=== PATIENT | male | born 1950 | race Hispanic/Latino ===

== ENCOUNTER 2021-08-20 14:37 | Inpatient (IN) | payer MEDICARE, MEDICAID ==
[~2021-08-20 14:37] MED LIST: Heparin 10,000 UNITS/ 10 ML VIAL ONE
[2021-08-20 15:32] LABS: #Eosinphils 0.3 thou/uL (0.0-0.7); #Lymphocytes 0.8 thou/uL (1.20-3.40); #Monocytes 0.4 thou/uL (0.11-0.59); #Neutrophils 5.3 thou/uL (1.40-6.50); %Basophils 0.6 % (0.0-1.0); %Eosinophils 4.3 % (0.0-10.0); %Lymphocytes 11.5 % (21.0-51.0); %Monocytes 5.2 % (0.0-10.0); %Neutrophils 78.3 % (42.0-75.0); Hemoglobin 9.1 g/dL (14.0-18.0); Mean Corpuscular HGB CONC 31.1 g/dL (32.0-36.0); Mean Corpuscular Hemoglobin 31.8 pg (27.0-31.0); Mean Platelet Volume 9.7 fL (7.4-10.4); Platelet Count 151 thou/uL (130-400); RBC Distribution Width 15.1 % (11.5-14.5); Red Blood Cell (RBC) Count 2.87 mill/uL (4.70-6.10); White Blood Cell (WBC) Count 6.7 thou/uL (4.8-10.8)
[2021-08-20 15:57] LABS: ALT (SGPT) 19 U/L (8-55); AST (SGOT) 27 U/L (5-34); Albumin 3.3 g/dL (3.4-4.8); Alkaline Phosphatase 146 U/L (40-110); Anion Gap 18 mmol/L (10-20); BUN (Urea Nitrogen) 77 mg/dL (8.4-25.7); Bilirubin, Total 0.6 mg/dL (0.2-1.2); Calc. Creatinine Clearance 0 mL/min (70-130); Calcium 7.5 mg/dL (7.8-10.44); Carbon Dioxide 14 mmol/L (23-31); Chloride 114 mmol/L (98-107); Globulin 3.5 g/dL (2.4-3.5); Glucose 108 mg/dL (80-115); Potassium 6.1 mmol/L (3.5-5.1); Protein, Total 6.8 g/dL (5.8-8.1); Sodium 140 mmol/L (136-145)
[2021-08-20 16:10] LABS: Bacteria/HPF None Seen HPF (None Seen); Bilirubin Negative (Negative); Blood, Urine 1+ (Negative); Clarity Clear (Clear); Glucose, Urine (Dipstick) 30 mg/dL (Negative); Ketone, Urine Negative (Negative); Leukocyte Negative Leu/uL (Negative); Nitrite Negative (Negative); Protein, Urine (Dipstick) 200 mg/dL (Neg-Trace); Specific Gravity, Urine 1.013 (1.002-1.036); Squamous Epithelial 0-3 HPF (0-3); Urobilinogen Normal mg/dL (Less than 2); WBC/HPF 0-3 HPF (0-3)
[2021-08-20] MEDS ORDERED: Dextrose 50% Abboject 50 ML SYRINGE SLOW IVP PRN (17:04)
[2021-08-20] MEDS ORDERED: Dextrose 5% in Water 1,000 ML IV PRN (17:04)
[2021-08-20] MEDS ORDERED: Acetaminophen 325 MG TAB PO PRN (17:07)
[2021-08-20 19:33] LABS: Troponin I 0.025 ng/mL (< 0.028)
[2021-08-20] MEDS ORDERED: Lantus 1000 UNITS/10 ML VIAL SC SCH ×2 (21:00)
[2021-08-20] MEDS ORDERED: Famotidine 20 MG TAB PO SCH (21:00)
[2021-08-20] MEDS ORDERED: Carvedilol 6.25 MG TAB PO SCH (21:00)
[2021-08-20 21:11] LABS: SARS-CoV-2 NAA Rapid Test Not Detected (NotDetected)
[2021-08-20 21:55] LABS: Troponin I 0.024 ng/mL (< 0.028)
[2021-08-20] MEDS: Carvedilol 6.25 MG TAB PO SCH (22:24)
[2021-08-20] MEDS: Famotidine 20 MG TAB PO SCH (22:25)
[2021-08-20] MEDS: Heparin 5,000 UNITS/ML VIAL SC SCH (23:02)
[2021-08-20 23:26] LABS: HBSAg Index 0.22 S/CO (0-0.99); Hep B Surf Ag Non-Reactive S/CO (NonReactive)
[2021-08-21 04:51] LABS: #Eosinphils 0.3 thou/uL (0.0-0.7); #Lymphocytes 0.7 thou/uL (1.20-3.40); #Monocytes 0.5 thou/uL (0.11-0.59); #Neutrophils 4.4 thou/uL (1.40-6.50); %Basophils 0.2 % (0.0-1.0); %Eosinophils 5.1 % (0.0-10.0); %Lymphocytes 12.1 % (21.0-51.0); %Monocytes 8.2 % (0.0-10.0); %Neutrophils 74.3 % (42.0-75.0); Anisocytosis SLIGHT = 6-15 cells (100X) (0-5/hpf); Burr Cells SLIGHT = 2-5 cells (100X) (0-1/hpf); Hemoglobin 8.7 g/dL (14.0-18.0); Large Platelets SLIGHT; MDiff Complete? YES; Mean Corpuscular HGB CONC 32.1 g/dL (32.0-36.0); Mean Corpuscular Hemoglobin 32.1 pg (27.0-31.0); Mean Corpuscular Volume 99.9 fL (78.0-98.0); Mean Platelet Volume 9.4 fL (7.4-10.4); Platelet Count 113 thou/uL (130-400); Platelet Morphology Comment Appears Decreased; RBC Distribution Width 15.1 % (11.5-14.5); White Blood Cell (WBC) Count 5.9 thou/uL (4.8-10.8)
[2021-08-21 05:01] LABS: Anion Gap 14 mmol/L (10-20); BUN (Urea Nitrogen) 64 mg/dL (8.4-25.7); Calc. Creatinine Clearance 15 mL/min (70-130); Calcium 7.7 mg/dL (7.8-10.44); Carbon Dioxide 19 mmol/L (23-31); Cardiac Risk 2.2 (Less than 4.5); Chloride 112 mmol/L (98-107); Cholesterol 85 mg/dl (< 200 Desired); Glucose 77 mg/dL (80-115); HDL Cholesterol 38 mg/dL (>60 Neg Risk); Iron 30 ug/dL (65-175); Iron Binding Capacity, Total 241 mcg/dL (261-462); LDL Cholesterol, Calculated 34 mg/dL; Potassium 4.8 mmol/L (3.5-5.1); Sodium 140 mmol/L (136-145); Triglycerides 63 mg/dL (Less than 150)
[2021-08-21 05:11] LABS: Ferritin 89.63 ng/mL (22-322); Thyroid Stimulating Hormone 0.6317 uIU/mL (0.35-4.94)
[2021-08-21 06:43] LABS: Hemoglobin A1c 5.3 % (4.0-6.0)
[2021-08-21] MEDS ORDERED: hydrALAZINE 20 MG/ML VIAL SLOW IVP PRN (08:41)
[2021-08-21] MEDS ORDERED: Tuberculin PPD 0.1 ML VIAL I-DERMAL SCH (08:45)
[2021-08-21] MEDS ORDERED: Non-Formulary Item 1 EACH (Atorvastatin Calcium [Atorvastatin Calcium] 80 MG Tablet) PO SCH (09:00)
[2021-08-21] MEDS ORDERED: Clopidogrel Bisulfate 75 MG TAB PO SCH (09:00)
[2021-08-21] MEDS ORDERED: Non-Formulary Item 1 EACH (Aspirin [Vazalore] 81 MG Capsule) PO SCH (09:00)
[2021-08-21 09:29] LABS: HBSAB Concentration Less than 8.00 mIU/mL; HBSAg Index 0.23 S/CO (0-0.99); Hep B Core Total Ab Non-Reactive (NonReactive); Hep B Core Total Index 0.13 S/CO (0-0.79); Hep B Surf AB Non-Reactive (NonReactive); Hep B Surf Ag Non-Reactive S/CO (NonReactive); Hep C IgG Ab Non-Reactive (NonReactive); Hep C Index 0.45 S/CO (0-0.79)
[2021-08-21] MEDS ORDERED: Heparin 10,000 UNITS/ 10 ML VIAL ONE (10:11)
[2021-08-21] MEDS: Atorvastatin Calcium 40 MG TAB PO SCH (13:19)
[2021-08-21] MEDS: Ferrous Sulfate 325 MG TAB PO SCH (13:20)
[2021-08-21] MEDS: hydrALAZINE 25 MG TAB PO SCH ×2 (13:20→21:08)
[2021-08-21] MEDS: Clopidogrel Bisulfate 75 MG TAB PO SCH (13:20)
[2021-08-21] MEDS: Heparin 5,000 UNITS/ML VIAL SC SCH ×4 (13:20→21:08)
[2021-08-21] MEDS: Carvedilol 6.25 MG TAB PO SCH ×2 (13:20→21:08)
[2021-08-21] MEDS: Aspirin 81 mg Enteric Coated Tablet PO SCH (13:20)
[2021-08-21] MEDS ORDERED: ceFAZolin 2 GM/Dextrose 50 ML 2 GM in Premix Bag 1 BAG IVPB SCH (13:30)
[2021-08-21] MEDS: HumaLOG 300 UNITS/3 ML VIAL SC PRN (21:08)
[2021-08-21] MEDS: Famotidine 20 MG TAB PO SCH (21:09)
[2021-08-22 05:02] LABS: #Eosinphils 0.3 thou/uL (0.0-0.7); #Lymphocytes 0.8 thou/uL (1.20-3.40); #Monocytes 0.5 thou/uL (0.11-0.59); #Neutrophils 4.6 thou/uL (1.40-6.50); %Basophils 0.3 % (0.0-1.0); %Eosinophils 4.7 % (0.0-10.0); %Lymphocytes 12.5 % (21.0-51.0); %Monocytes 8.6 % (0.0-10.0); %Neutrophils 73.9 % (42.0-75.0); Mean Corpuscular HGB CONC 33.4 g/dL (32.0-36.0); Mean Corpuscular Hemoglobin 33.6 pg (27.0-31.0); Mean Platelet Volume 9.2 fL (7.4-10.4); Platelet Count 88 thou/uL (130-400); RBC Distribution Width 15.2 % (11.5-14.5); Red Blood Cell (RBC) Count 2.68 mill/uL (4.70-6.10); White Blood Cell (WBC) Count 6.2 thou/uL (4.8-10.8)
[2021-08-22 05:20] LABS: Anion Gap 11 mmol/L (10-20); BUN (Urea Nitrogen) 43 mg/dL (8.4-25.7); Calc. Creatinine Clearance 18 mL/min (70-130); Calcium 7.6 mg/dL (7.8-10.44); Carbon Dioxide 26 mmol/L (23-31); Chloride 106 mmol/L (98-107); Glucose 109 mg/dL (80-115); Potassium 4.2 mmol/L (3.5-5.1); Sodium 139 mmol/L (136-145)
[2021-08-22] MEDS ORDERED: Epoetin (ESRD) 20,000 UNITS/ML SC SCH (08:45)
[2021-08-22] MEDS ORDERED: Heparin 10,000 UNITS/ 10 ML VIAL ONE (08:53)
[2021-08-22] MEDS: Heparin 5,000 UNITS/ML VIAL SC SCH ×3 (09:58→20:23)
[2021-08-22] MEDS: Ferrous Sulfate 325 MG TAB PO SCH (16:35)
[2021-08-22] MEDS: Carvedilol 6.25 MG TAB PO SCH ×2 (16:35→20:20)
[2021-08-22] MEDS: hydrALAZINE 25 MG TAB PO SCH ×2 (16:35→20:18)
[2021-08-22] MEDS: Clopidogrel Bisulfate 75 MG TAB PO SCH (16:35)
[2021-08-22] MEDS: Aspirin 81 mg Enteric Coated Tablet PO SCH (16:35)
[2021-08-22] MEDS: Isosorbide Dinitrate 5 MG TAB PO SCH ×2 (16:35→20:18)
[2021-08-22] MEDS: Atorvastatin Calcium 40 MG TAB PO SCH ×2 (16:36→20:19)
[2021-08-22] MEDS: EPOETIN ALFA-EPBX (ESRD) 10,000 UNIT/ML VIAL SC SCH (17:45)
[2021-08-22] MEDS: Famotidine 20 MG TAB PO SCH (20:19)
[2021-08-23 04:51] LABS: #Eosinphils 0.2 thou/uL (0.0-0.7); #Lymphocytes 0.6 thou/uL (1.20-3.40); #Monocytes 0.5 thou/uL (0.11-0.59); #Neutrophils 3.9 thou/uL (1.40-6.50); %Basophils 0.7 % (0.0-1.0); %Eosinophils 4.6 % (0.0-10.0); %Lymphocytes 10.8 % (21.0-51.0); %Monocytes 9.3 % (0.0-10.0); %Neutrophils 74.6 % (42.0-75.0); Hemoglobin 8.3 g/dL (14.0-18.0); Mean Corpuscular Hemoglobin 34.3 pg (27.0-31.0); Mean Platelet Volume 9.4 fL (7.4-10.4); Platelet Count 67 thou/uL (130-400); Red Blood Cell (RBC) Count 2.43 mill/uL (4.70-6.10); White Blood Cell (WBC) Count 5.3 thou/uL (4.8-10.8)
[2021-08-23 05:09] LABS: Phosphorus 3.2 mg/dL (2.3-4.7)
[2021-08-23 05:10] LABS: Anion Gap 12 mmol/L (10-20); BUN (Urea Nitrogen) 22 mg/dL (8.4-25.7); Calc. Creatinine Clearance 25 mL/min (70-130); Calcium 7.5 mg/dL (7.8-10.44); Carbon Dioxide 27 mmol/L (23-31); Chloride 103 mmol/L (98-107); Glucose 130 mg/dL (80-115); Potassium 3.6 mmol/L (3.5-5.1); Sodium 138 mmol/L (136-145)
[2021-08-23] MEDS ORDERED: Heparin 10,000 UNITS/ 10 ML VIAL ONE (09:13)
[2021-08-23] MEDS: Carvedilol 6.25 MG TAB PO SCH ×2 (10:29→21:52)
[2021-08-23] MEDS: hydrALAZINE 25 MG TAB PO SCH ×3 (10:30→21:53)
[2021-08-23] MEDS: Isosorbide Dinitrate 5 MG TAB PO SCH ×3 (10:31→21:53)
[2021-08-23] MEDS: Losartan 25 MG TAB PO SCH ×2 (10:31→15:36)
[2021-08-23 11:06] LABS: INR-International Normal Ratio 1.1; Prothrombin Time 14.6 sec (12.0-14.7)
[2021-08-23] MEDS ORDERED: Argatroban (Non -ESRD) 250 MG in Sodium Chloride 0.9% 250 ML 250 ML IVPB SCH (11:30)
[2021-08-23] MEDS: Fluticasone Propionate Nasal Spray 16 gm Bottle NASAL SCH (15:33)
[2021-08-23] MEDS: Polyethylene Glycol 3350 17 GM Packet PO SCH (15:33)
[2021-08-23] MEDS: Ferrous Sulfate 325 MG TAB PO SCH (15:34)
[2021-08-23] MEDS: Aspirin 81 mg Enteric Coated Tablet PO SCH (15:35)
[2021-08-23] MEDS: Calcitriol 0.25 MCG CAP PO SCH (15:35)
[2021-08-23] MEDS: Clopidogrel Bisulfate 75 MG TAB PO SCH (15:36)
[2021-08-23] MEDS: Famotidine 20 MG TAB PO SCH (21:52)
[2021-08-23] MEDS: Atorvastatin Calcium 40 MG TAB PO SCH (21:52)
[2021-08-24 06:13] LABS: #Eosinphils 0.3 thou/uL (0.0-0.7); #Lymphocytes 0.8 thou/uL (1.20-3.40); #Monocytes 0.5 thou/uL (0.11-0.59); #Neutrophils 4.4 thou/uL (1.40-6.50); %Basophils 0.4 % (0.0-1.0); %Eosinophils 5.1 % (0.0-10.0); %Lymphocytes 13.4 % (21.0-51.0); %Monocytes 8.4 % (0.0-10.0); %Neutrophils 72.7 % (42.0-75.0); Hemoglobin 8.1 g/dL (14.0-18.0); Mean Corpuscular HGB CONC 32.7 g/dL (32.0-36.0); Mean Corpuscular Hemoglobin 32.8 pg (27.0-31.0); Mean Platelet Volume 9.9 fL (7.4-10.4); Platelet Count 63 thou/uL (130-400); Red Blood Cell (RBC) Count 2.46 mill/uL (4.70-6.10)
[2021-08-24 06:23] LABS: Anion Gap 10 mmol/L (10-20); BUN (Urea Nitrogen) 12 mg/dL (8.4-25.7); Calc. Creatinine Clearance 28 mL/min (70-130); Calcium 7.7 mg/dL (7.8-10.44); Carbon Dioxide 31 mmol/L (23-31); Chloride 101 mmol/L (98-107); Glucose 131 mg/dL (80-115); Potassium 3.6 mmol/L (3.5-5.1); Sodium 138 mmol/L (136-145)
[2021-08-24] MEDS ORDERED: Losartan 25 MG TAB PO SCH (09:45)
[2021-08-24] MEDS ORDERED: Heparin 10,000 UNITS/ 10 ML VIAL ONE (11:32)
[2021-08-24] MEDS ORDERED: Lidocaine 1% w/Epinephrine 1:100K 30 ML VIAL ONE (11:32)
[2021-08-24] MEDS ORDERED: Heparin 5,000 UNITS/ML VIAL ONE (11:32)
[2021-08-24] MEDS ORDERED: Bupivacaine PF 0.5% 30 ML VIAL ONE (11:32)
[2021-08-24] MEDS ORDERED: Fentanyl 100 MCG/2 ML VIAL ONE (11:36)
[2021-08-24] MEDS ORDERED: Phenylephrine 10 MG/ML VIAL ONE (11:36)
[2021-08-24] MEDS ORDERED: PACU-Morphine 4MG/ML VIAL SLOW IVP PRN (11:46)
[2021-08-24] MEDS ORDERED: Promethazine HCl 25 MG/ML VIAL IM PRN (11:46)
[2021-08-24] MEDS ORDERED: Promethazine HCl 25 MG/ML VIAL IVPB PRN (11:46)
[2021-08-24] MEDS ORDERED: ceFAZolin 2 GM/Dextrose 50 ML IVPB ONE (11:47)
[2021-08-24] MEDS ORDERED: PROPOFOL 200 MG/20 ML VIAL ONE (12:13)
[2021-08-24] MEDS ORDERED: Ondansetron PF 4 MG/2 ML Vial ONE (12:13)
[2021-08-24] MEDS ORDERED: PHENYLEPHRINE-NS 100 MCG/ML 10 ML SYRINGE ONE (12:13)
[2021-08-24] MEDS ORDERED: Dexamethasone 20 MG/5 ML VIAL ONE (12:13)
[2021-08-24] MEDS ORDERED: Lidocaine 1% PF 5 ML VIAL ONE (12:13)
[2021-08-24] MEDS ORDERED: ePHEDrine 50 MG/ML VIAL ONE (12:13)
[2021-08-24] MEDS ORDERED: Glycopyrrolate 0.2 MG/ML 5 ML SYRINGE ONE (12:13)
[2021-08-24] MEDS ORDERED: Rocuronium Bromide 10 MG/ML (10ML VIAL) ONE (12:13)
[2021-08-24] MEDS ORDERED: Argatroban (Non -ESRD) 250 MG in Sodium Chloride 0.9% 250 ML 250 ML IVPB SCH (12:30)
[2021-08-24] MEDS ORDERED: Argatroban (ESRD) 250 MG/2.5 ML IVPB SCH (12:30)
[2021-08-24] MEDS ORDERED: SUGAMMADEX SODIUM 200 MG/2 ML VIAL ONE (14:15)
[2021-08-24] MEDS: Aspirin 81 mg Enteric Coated Tablet PO SCH (14:33)
[2021-08-24] MEDS: Ferrous Sulfate 325 MG TAB PO SCH (14:33)
[2021-08-24] MEDS: Carvedilol 6.25 MG TAB PO SCH ×2 (14:34→20:47)
[2021-08-24] MEDS: Clopidogrel Bisulfate 75 MG TAB PO SCH (14:34)
[2021-08-24] MEDS: Calcitriol 0.25 MCG CAP PO SCH (14:34)
[2021-08-24] MEDS: Fluticasone Propionate Nasal Spray 16 gm Bottle NASAL SCH (14:35)
[2021-08-24] MEDS: Isosorbide Dinitrate 5 MG TAB PO SCH ×3 (14:35→20:47)
[2021-08-24] MEDS: Polyethylene Glycol 3350 17 GM Packet PO SCH (14:35)
[2021-08-24] MEDS: hydrALAZINE 25 MG TAB PO SCH ×3 (14:37→20:46)
[2021-08-24] MEDS: Losartan 25 MG TAB PO SCH (14:38)
[2021-08-24] MEDS ORDERED: Acetaminophen 500 MG TAB PO PRN (15:09)
[2021-08-24] MEDS ORDERED: Acetaminophen 500 MG TAB PO SCH (15:15)
[2021-08-24] MEDS: Atorvastatin Calcium 40 MG TAB PO SCH (20:46)
[2021-08-24] MEDS: Famotidine 20 MG TAB PO SCH (20:47)
[2021-08-25 04:58] LABS: Anion Gap 14 mmol/L (10-20); BUN (Urea Nitrogen) 18 mg/dL (8.4-25.7); Calc. Creatinine Clearance 21 mL/min (70-130); Calcium 7.6 mg/dL (7.8-10.44); Carbon Dioxide 27 mmol/L (23-31); Chloride 102 mmol/L (98-107); Glucose 157 mg/dL (80-115); Potassium 4.6 mmol/L (3.5-5.1); Sodium 138 mmol/L (136-145)
[2021-08-25 05:13] LABS: #Lymphocytes 0.5 thou/uL (1.20-3.40); #Monocytes 0.7 thou/uL (0.11-0.59); #Neutrophils 8.7 thou/uL (1.40-6.50); %Lymphocytes 5.2 % (21.0-51.0); %Monocytes 6.6 % (0.0-10.0); %Neutrophils 88.2 % (42.0-75.0); Hemoglobin 8.2 g/dL (14.0-18.0); Mean Corpuscular HGB CONC 32.5 g/dL (32.0-36.0); Mean Corpuscular Hemoglobin 33.2 pg (27.0-31.0); Mean Platelet Volume 9.2 fL (7.4-10.4); Platelet Count 108 thou/uL (130-400); RBC Distribution Width 14.8 % (11.5-14.5); Red Blood Cell (RBC) Count 2.47 mill/uL (4.70-6.10); White Blood Cell (WBC) Count 9.9 thou/uL (4.8-10.8)
[2021-08-25] MEDS ORDERED: Heparin 10,000 UNITS/ 10 ML VIAL ONE (09:31)
[2021-08-25] MEDS: Ferrous Sulfate 325 MG TAB PO SCH (14:14)
[2021-08-25] MEDS: Carvedilol 6.25 MG TAB PO SCH ×2 (14:15→21:50)
[2021-08-25] MEDS: Clopidogrel Bisulfate 75 MG TAB PO SCH (14:15)
[2021-08-25] MEDS: Calcitriol 0.25 MCG CAP PO SCH (14:15)
[2021-08-25] MEDS: Fluticasone Propionate Nasal Spray 16 gm Bottle NASAL SCH (14:16)
[2021-08-25] MEDS: hydrALAZINE 25 MG TAB PO SCH ×3 (14:17→21:51)
[2021-08-25] MEDS: Isosorbide Dinitrate 5 MG TAB PO SCH ×3 (14:18→21:07)
[2021-08-25] MEDS: Losartan 25 MG TAB PO SCH (14:19)
[2021-08-25] MEDS: Aspirin 81 mg Enteric Coated Tablet PO SCH (14:41)
[2021-08-25] MEDS: Polyethylene Glycol 3350 17 GM Packet PO SCH ×2 (14:44→21:19)
[2021-08-25] MEDS: Famotidine 20 MG TAB PO SCH (21:07)
[2021-08-25] MEDS: Atorvastatin Calcium 40 MG TAB PO SCH (21:07)
[2021-08-26] MEDS: Fluticasone Propionate Nasal Spray 16 gm Bottle NASAL SCH (08:32)
[2021-08-26] MEDS: Polyethylene Glycol 3350 17 GM Packet PO SCH ×2 (08:33→21:35)
[2021-08-26] MEDS: hydrALAZINE 25 MG TAB PO SCH ×3 (08:34→21:24)
[2021-08-26] MEDS: Clopidogrel Bisulfate 75 MG TAB PO SCH (08:35)
[2021-08-26] MEDS: Losartan 25 MG TAB PO SCH (08:36)
[2021-08-26] MEDS: Ferrous Sulfate 325 MG TAB PO SCH (08:36)
[2021-08-26] MEDS: Calcitriol 0.25 MCG CAP PO SCH (08:36)
[2021-08-26] MEDS: Aspirin 81 mg Enteric Coated Tablet PO SCH (08:36)
[2021-08-26] MEDS: Isosorbide Dinitrate 5 MG TAB PO SCH ×3 (08:37→21:24)
[2021-08-26] MEDS: Carvedilol 6.25 MG TAB PO SCH ×2 (08:37→21:25)
[2021-08-26 12:53] LABS: #Eosinphils 0.3 thou/uL (0.0-0.7); #Lymphocytes 0.7 thou/uL (1.20-3.40); #Monocytes 0.6 thou/uL (0.11-0.59); #Neutrophils 6.4 thou/uL (1.40-6.50); %Basophils 0.3 % (0.0-1.0); %Eosinophils 4.2 % (0.0-10.0); %Lymphocytes 9.2 % (21.0-51.0); %Neutrophils 79.4 % (42.0-75.0); Hemoglobin 7.9 g/dL (14.0-18.0); Mean Corpuscular HGB CONC 33.1 g/dL (32.0-36.0); Mean Corpuscular Hemoglobin 33.9 pg (27.0-31.0); Mean Platelet Volume 9.2 fL (7.4-10.4); Platelet Count 92 thou/uL (130-400); Red Blood Cell (RBC) Count 2.32 mill/uL (4.70-6.10); White Blood Cell (WBC) Count 8.1 thou/uL (4.8-10.8)
[2021-08-26 13:02] LABS: Anion Gap 9 mmol/L (10-20); BUN (Urea Nitrogen) 20 mg/dL (8.4-25.7); Calc. Creatinine Clearance 22 mL/min (70-130); Calcium 7.6 mg/dL (7.8-10.44); Carbon Dioxide 32 mmol/L (23-31); Chloride 98 mmol/L (98-107); Glucose 173 mg/dL (80-115); Potassium 3.9 mmol/L (3.5-5.1); Sodium 135 mmol/L (136-145)
[2021-08-26] MEDS: HumaLOG 300 UNITS/3 ML VIAL SC PRN (17:49)
[2021-08-26] MEDS: Famotidine 20 MG TAB PO SCH (21:25)
[2021-08-26] MEDS: Atorvastatin Calcium 40 MG TAB PO SCH (21:25)
[2021-08-27] MEDS: Fluticasone Propionate Nasal Spray 16 gm Bottle NASAL SCH (09:11)
[2021-08-27] MEDS: Calcitriol 0.25 MCG CAP PO SCH (09:11)
[2021-08-27] MEDS: Polyethylene Glycol 3350 17 GM Packet PO SCH ×2 (09:11→20:42)
[2021-08-27] MEDS: Aspirin 81 mg Enteric Coated Tablet PO SCH (09:11)
[2021-08-27] MEDS: hydrALAZINE 25 MG TAB PO SCH ×3 (09:11→20:40)
[2021-08-27] MEDS: Carvedilol 6.25 MG TAB PO SCH ×2 (09:13→20:40)
[2021-08-27] MEDS: Losartan 25 MG TAB PO SCH (09:13)
[2021-08-27] MEDS: Ferrous Sulfate 325 MG TAB PO SCH (09:13)
[2021-08-27] MEDS: Clopidogrel Bisulfate 75 MG TAB PO SCH (09:14)
[2021-08-27] MEDS: Isosorbide Dinitrate 5 MG TAB PO SCH ×3 (09:14→20:41)
[2021-08-27 10:02] LABS: #Eosinphils 0.4 thou/uL (0.0-0.7); #Lymphocytes 0.8 thou/uL (1.20-3.40); #Monocytes 0.5 thou/uL (0.11-0.59); #Neutrophils 6.5 thou/uL (1.40-6.50); %Basophils 0.4 % (0.0-1.0); %Eosinophils 4.6 % (0.0-10.0); %Lymphocytes 9.6 % (21.0-51.0); %Monocytes 6.4 % (0.0-10.0); Hemoglobin 8.4 g/dL (14.0-18.0); Mean Corpuscular HGB CONC 30.8 g/dL (32.0-36.0); Mean Platelet Volume 9.3 fL (7.4-10.4); Platelet Count 110 thou/uL (130-400); RBC Distribution Width 14.8 % (11.5-14.5); Red Blood Cell (RBC) Count 2.69 mill/uL (4.70-6.10); White Blood Cell (WBC) Count 8.2 thou/uL (4.8-10.8)
[2021-08-27 11:03] LABS: Anion Gap 13 mmol/L (10-20); BUN (Urea Nitrogen) 30 mg/dL (8.4-25.7); Calc. Creatinine Clearance 16 mL/min (70-130); Calcium 8.2 mg/dL (7.8-10.44); Carbon Dioxide 29 mmol/L (23-31); Chloride 98 mmol/L (98-107); Glucose 179 mg/dL (80-115); Potassium 3.7 mmol/L (3.5-5.1); Sodium 136 mmol/L (136-145)
[2021-08-27] MEDS: HumaLOG 300 UNITS/3 ML VIAL SC PRN ×2 (12:22→19:41)
[2021-08-27 13:36] LABS: SARS-CoV-2 PCR by NAA Not Detected (NotDetected)
[2021-08-27] MEDS: Atorvastatin Calcium 40 MG TAB PO SCH (20:39)
[2021-08-27] MEDS: Famotidine 20 MG TAB PO SCH (20:40)
[2021-08-28 06:00] LABS: Anion Gap 15 mmol/L (10-20); BUN (Urea Nitrogen) 33 mg/dL (8.4-25.7); Calc. Creatinine Clearance 13 mL/min (70-130); Calcium 7.9 mg/dL (7.8-10.44); Carbon Dioxide 26 mmol/L (23-31); Chloride 98 mmol/L (98-107); Glucose 99 mg/dL (80-115); Potassium 3.7 mmol/L (3.5-5.1); Sodium 135 mmol/L (136-145)
[2021-08-28 06:01] LABS: #Eosinphils 0.3 thou/uL (0.0-0.7); #Lymphocytes 0.8 thou/uL (1.20-3.40); #Monocytes 0.6 thou/uL (0.11-0.59); #Neutrophils 5.3 thou/uL (1.40-6.50); %Basophils 0.3 % (0.0-1.0); %Eosinophils 4.4 % (0.0-10.0); %Lymphocytes 11.2 % (21.0-51.0); %Monocytes 7.8 % (0.0-10.0); %Neutrophils 76.2 % (42.0-75.0); Hemoglobin 7.5 g/dL (14.0-18.0); Mean Corpuscular HGB CONC 32.5 g/dL (32.0-36.0); Mean Corpuscular Hemoglobin 32.4 pg (27.0-31.0); Mean Corpuscular Volume 99.5 fL (78.0-98.0); Mean Platelet Volume 8.9 fL (7.4-10.4); Platelet Count 111 thou/uL (130-400); RBC Distribution Width 14.8 % (11.5-14.5); Red Blood Cell (RBC) Count 2.31 mill/uL (4.70-6.10)
[2021-08-28] MEDS: Fluticasone Propionate Nasal Spray 16 gm Bottle NASAL SCH (09:23)
[2021-08-28] MEDS ORDERED: Heparin 10,000 UNITS/ 10 ML VIAL ONE (10:39)
[2021-08-28] MEDS: hydrALAZINE 25 MG TAB PO SCH ×3 (10:51→21:48)
[2021-08-28] MEDS: Isosorbide Dinitrate 5 MG TAB PO SCH ×3 (10:51→21:49)
[2021-08-28] MEDS: Ferrous Sulfate 325 MG TAB PO SCH (15:11)
[2021-08-28] MEDS: Aspirin 81 mg Enteric Coated Tablet PO SCH (15:11)
[2021-08-28] MEDS: Carvedilol 6.25 MG TAB PO SCH ×2 (15:12→21:48)
[2021-08-28] MEDS: Calcitriol 0.25 MCG CAP PO SCH (15:12)
[2021-08-28] MEDS: Clopidogrel Bisulfate 75 MG TAB PO SCH (15:12)
[2021-08-28] MEDS: Losartan 25 MG TAB PO SCH (15:12)
[2021-08-28] MEDS: traMADol HCl 50 MG TAB PO PRN ×2 (15:13→21:50)
[2021-08-28] MEDS: Polyethylene Glycol 3350 17 GM Packet PO SCH ×3 (15:13→21:51)
[2021-08-28 17:15] LABS: Heparin-Induced Ab (HITA) 0.092 OD (0.000-0.400)
[2021-08-28] MEDS: HumaLOG 300 UNITS/3 ML VIAL SC PRN ×2 (18:10→21:59)
[2021-08-28] MEDS: Famotidine 20 MG TAB PO SCH (21:48)
[2021-08-28] MEDS: Atorvastatin Calcium 40 MG TAB PO SCH (21:48)
[2021-08-29 04:56] LABS: #Eosinphils 0.2 thou/uL (0.0-0.7); #Monocytes 0.6 thou/uL (0.11-0.59); #Neutrophils 4.5 thou/uL (1.40-6.50); %Basophils 0.6 % (0.0-1.0); %Eosinophils 3.4 % (0.0-10.0); %Lymphocytes 15.1 % (21.0-51.0); %Monocytes 9.2 % (0.0-10.0); %Neutrophils 71.7 % (42.0-75.0); Hemoglobin 7.1 g/dL (14.0-18.0); Mean Corpuscular HGB CONC 32.1 g/dL (32.0-36.0); Mean Corpuscular Hemoglobin 32.2 pg (27.0-31.0); Mean Platelet Volume 8.6 fL (7.4-10.4); Platelet Count 100 thou/uL (130-400); RBC Distribution Width 14.7 % (11.5-14.5); Red Blood Cell (RBC) Count 2.22 mill/uL (4.70-6.10); White Blood Cell (WBC) Count 6.3 thou/uL (4.8-10.8)
[2021-08-29 05:03] LABS: Anion Gap 10 mmol/L (10-20); BUN (Urea Nitrogen) 20 mg/dL (8.4-25.7); Calc. Creatinine Clearance 20 mL/min (70-130); Calcium 7.7 mg/dL (7.8-10.44); Carbon Dioxide 31 mmol/L (23-31); Chloride 100 mmol/L (98-107); Glucose 98 mg/dL (80-115); Sodium 137 mmol/L (136-145)
[2021-08-29] MEDS: Isosorbide Dinitrate 5 MG TAB PO SCH ×3 (09:24→20:54)
[2021-08-29] MEDS: Aspirin 81 mg Enteric Coated Tablet PO SCH (09:24)
[2021-08-29] MEDS: Ferrous Sulfate 325 MG TAB PO SCH (09:24)
[2021-08-29] MEDS: Carvedilol 6.25 MG TAB PO SCH ×2 (09:25→20:54)
[2021-08-29] MEDS: Clopidogrel Bisulfate 75 MG TAB PO SCH (09:25)
[2021-08-29] MEDS: Calcitriol 0.25 MCG CAP PO SCH (09:25)
[2021-08-29] MEDS: Fluticasone Propionate Nasal Spray 16 gm Bottle NASAL SCH (09:27)
[2021-08-29] MEDS: Losartan 25 MG TAB PO SCH (09:29)
[2021-08-29] MEDS: hydrALAZINE 25 MG TAB PO SCH ×3 (09:29→20:53)
[2021-08-29] MEDS: Polyethylene Glycol 3350 17 GM Packet PO SCH ×2 (09:29→21:01)
[2021-08-29] MEDS ORDERED: traMADol HCl 50 MG TAB PO PRN (09:57)
[2021-08-29] MEDS: EPOETIN ALFA-EPBX (ESRD) 10,000 UNIT/ML VIAL SC SCH (11:07)
[2021-08-29] MEDS: HumaLOG 300 UNITS/3 ML VIAL SC PRN (17:17)
[2021-08-29] MEDS: Atorvastatin Calcium 40 MG TAB PO SCH (20:54)
[2021-08-29] MEDS: Famotidine 20 MG TAB PO SCH (20:54)
[2021-08-29 21:28] LABS: Hemoglobin 8.7 g/dL (14.0-18.0); Platelet Count 117 thou/uL (130-400)
[2021-08-30 05:50] LABS: #Eosinphils 0.3 thou/uL (0.0-0.7); #Monocytes 0.7 thou/uL (0.11-0.59); #Neutrophils 5.2 thou/uL (1.40-6.50); %Basophils 0.3 % (0.0-1.0); %Eosinophils 4.1 % (0.0-10.0); %Lymphocytes 13.9 % (21.0-51.0); %Monocytes 9.6 % (0.0-10.0); %Neutrophils 72.1 % (42.0-75.0); Hemoglobin 8.5 g/dL (14.0-18.0); Mean Corpuscular HGB CONC 32.2 g/dL (32.0-36.0); Mean Corpuscular Volume 99.4 fL (78.0-98.0); Platelet Count 120 thou/uL (130-400); RBC Distribution Width 15.1 % (11.5-14.5); Red Blood Cell (RBC) Count 2.67 mill/uL (4.70-6.10); White Blood Cell (WBC) Count 7.3 thou/uL (4.8-10.8)
[2021-08-30 06:05] LABS: Anion Gap 13 mmol/L (10-20); BUN (Urea Nitrogen) 26 mg/dL (8.4-25.7); Calc. Creatinine Clearance 15 mL/min (70-130); Calcium 8.3 mg/dL (7.8-10.44); Carbon Dioxide 29 mmol/L (23-31); Chloride 99 mmol/L (98-107); Glucose 102 mg/dL (80-115); Potassium 3.9 mmol/L (3.5-5.1); Sodium 137 mmol/L (136-145)
[2021-08-30] MEDS: Isosorbide Dinitrate 5 MG TAB PO SCH ×4 (09:01→20:44)
[2021-08-30] MEDS: hydrALAZINE 25 MG TAB PO SCH ×4 (09:01→20:44)
[2021-08-30] MEDS: Polyethylene Glycol 3350 17 GM Packet PO SCH ×2 (09:02→20:44)
[2021-08-30] MEDS: Losartan 25 MG TAB PO SCH ×2 (09:02→09:20)
[2021-08-30] MEDS: Metoclopramide HCl 10 MG TAB PO SCH ×5 (09:03→20:44)
[2021-08-30] MEDS: Fluticasone Propionate Nasal Spray 16 gm Bottle NASAL SCH (09:18)
[2021-08-30] MEDS: Clopidogrel Bisulfate 75 MG TAB PO SCH (09:20)
[2021-08-30] MEDS: Aspirin 81 mg Enteric Coated Tablet PO SCH (09:21)
[2021-08-30] MEDS: Ferrous Sulfate 325 MG TAB PO SCH (09:21)
[2021-08-30] MEDS: Calcitriol 0.25 MCG CAP PO SCH (09:21)
[2021-08-30] MEDS: Carvedilol 6.25 MG TAB PO SCH ×2 (09:21→20:43)
[2021-08-30] MEDS ORDERED: diphenhydrAMINE 25 MG CAP PO SCH (09:30)
[2021-08-30] MEDS ORDERED: Heparin 10,000 UNITS/ 10 ML VIAL ONE (10:44)
[2021-08-30 12:51] VITALS: BMI 31.6
[2021-08-30] MEDS: Atorvastatin Calcium 40 MG TAB PO SCH (20:43)
[2021-08-30] MEDS: Famotidine 20 MG TAB PO SCH (20:44)
[2021-08-31 04:33] LABS: #Basophils 0.1 thou/uL (0.0-0.2); #Eosinphils 0.3 thou/uL (0.0-0.7); #Lymphocytes 0.9 thou/uL (1.20-3.40); #Monocytes 0.7 thou/uL (0.11-0.59); #Neutrophils 5.1 thou/uL (1.40-6.50); %Basophils 0.7 % (0.0-1.0); %Eosinophils 4.6 % (0.0-10.0); %Lymphocytes 12.6 % (21.0-51.0); %Monocytes 9.6 % (0.0-10.0); %Neutrophils 72.4 % (42.0-75.0); Hemoglobin 8.7 g/dL (14.0-18.0); Mean Corpuscular HGB CONC 32.2 g/dL (32.0-36.0); Mean Corpuscular Volume 99.4 fL (78.0-98.0); Mean Platelet Volume 9.1 fL (7.4-10.4); Platelet Count 102 thou/uL (130-400); RBC Distribution Width 14.9 % (11.5-14.5); Red Blood Cell (RBC) Count 2.73 mill/uL (4.70-6.10)
[2021-08-31 04:45] LABS: Anion Gap 13 mmol/L (10-20); BUN (Urea Nitrogen) 17 mg/dL (8.4-25.7); Calc. Creatinine Clearance 21 mL/min (70-130); Calcium 8.2 mg/dL (7.8-10.44); Carbon Dioxide 29 mmol/L (23-31); Chloride 99 mmol/L (98-107); Glucose 112 mg/dL (80-115); Potassium 3.7 mmol/L (3.5-5.1); Sodium 137 mmol/L (136-145)
[2021-08-31] MEDS: Metoclopramide HCl 10 MG TAB PO SCH ×4 (08:32→21:48)
[2021-08-31] MEDS: Ferrous Sulfate 325 MG TAB PO SCH (08:33)
[2021-08-31] MEDS: Carvedilol 6.25 MG TAB PO SCH ×2 (08:33→21:51)
[2021-08-31] MEDS: Aspirin 81 mg Enteric Coated Tablet PO SCH (08:33)
[2021-08-31] MEDS: Calcitriol 0.25 MCG CAP PO SCH (08:33)
[2021-08-31] MEDS: Fluticasone Propionate Nasal Spray 16 gm Bottle NASAL SCH (08:34)
[2021-08-31] MEDS: hydrALAZINE 25 MG TAB PO SCH ×3 (08:34→21:53)
[2021-08-31] MEDS: Losartan 25 MG TAB PO SCH (08:34)
[2021-08-31] MEDS: Clopidogrel Bisulfate 75 MG TAB PO SCH (08:34)
[2021-08-31] MEDS: Polyethylene Glycol 3350 17 GM Packet PO SCH ×2 (08:35→21:46)
[2021-08-31] MEDS: Isosorbide Dinitrate 5 MG TAB PO SCH ×3 (08:35→21:52)
[2021-08-31] MEDS: HumaLOG 300 UNITS/3 ML VIAL SC PRN (11:25)
[2021-08-31 20:29] VITALS: TEMP 97.6
[2021-08-31] MEDS: Famotidine 20 MG TAB PO SCH (21:49)
[2021-08-31] MEDS: Atorvastatin Calcium 40 MG TAB PO SCH (21:50)
[2021-09-01] MEDS: Polyethylene Glycol 3350 17 GM Packet PO SCH (08:23)
[2021-09-01] MEDS: Metoclopramide HCl 10 MG TAB PO SCH ×2 (08:24→11:19)
[2021-09-01] MEDS: Fluticasone Propionate Nasal Spray 16 gm Bottle NASAL SCH (08:25)
[2021-09-01] MEDS: Carvedilol 6.25 MG TAB PO SCH (08:25)
[2021-09-01] MEDS: Clopidogrel Bisulfate 75 MG TAB PO SCH (08:25)
[2021-09-01] MEDS: Ferrous Sulfate 325 MG TAB PO SCH (08:25)
[2021-09-01] MEDS: Aspirin 81 mg Enteric Coated Tablet PO SCH (08:25)
[2021-09-01] MEDS: Calcitriol 0.25 MCG CAP PO SCH (08:25)
[2021-09-01] MEDS: hydrALAZINE 25 MG TAB PO SCH ×2 (08:26→14:04)
[2021-09-01] MEDS: Losartan 25 MG TAB PO SCH (08:26)
[2021-09-01] MEDS: Isosorbide Dinitrate 5 MG TAB PO SCH ×2 (08:26→14:03)
[2021-09-01 08:27] VITALS: BP 172/85
[2021-09-01] MEDS ORDERED: diphenhydrAMINE 50 MG/ML VIAL IVP SCH (09:45)
[2021-09-01] MEDS ORDERED: Heparin 10,000 UNITS/ 10 ML VIAL ONE (10:48)
== END 2021-09-01 15:37 | disposition home or self-care (01) | DRG 673 ==
LOC: ERS 14:37 → 2NO 16:08 → MSONC 08-30 15:03
PROVIDERS: ADMIT Family Medicine; ATTEND Family Medicine
PROC: 06HY33Z Insertion of Infusion Device into Lower Vein, Percutaneous Approach (ICD-10-PCS; 2021-08-20)
PROC: 5A1D70Z Performance of Urinary Filtration, Intermittent, Less than 6 Hours Per Day (ICD-10-PCS; 2021-08-20)
PROC: 031C0ZF Bypass Left Radial Artery to Lower Arm Vein, Open Approach (ICD-10-PCS; principal; 2021-08-24)
PROC: 0WHG43Z Insertion of Infusion Device into Peritoneal Cavity, Percutaneous Endoscopic Approach (ICD-10-PCS; 2021-08-24)
PROC: 0JH60XZ Insertion of Tunneled Vascular Access Device into Chest Subcutaneous Tissue and Fascia, Open Approach (ICD-10-PCS; 2021-08-24)
PROC: 02HV33Z Insertion of Infusion Device into Superior Vena Cava, Percutaneous Approach (ICD-10-PCS; 2021-08-24)
PROC: B5181ZA Fluoroscopy of Superior Vena Cava using Low Osmolar Contrast, Guidance (ICD-10-PCS; 2021-08-24)
PROC: 02HV33Z Insertion of Infusion Device into Superior Vena Cava, Percutaneous Approach (ICD-10-PCS; 2021-08-24)
PROC: B548ZZA Ultrasonography of Superior Vena Cava, Guidance (ICD-10-PCS; 2021-08-24)
PROC: 6A550Z2 Pheresis of Platelets, Single (ICD-10-PCS; 2021-08-24)
PROC: 30233N1 Transfusion of Nonautologous Red Blood Cells into Peripheral Vein, Percutaneous Approach (ICD-10-PCS; 2021-09-01)
DX: E11.22 Type 2 diabetes mellitus with diabetic chronic kidney disease (principal); I50.33 Acute on chronic diastolic (congestive) heart failure; I12.0 Hypertensive chronic kidney disease with stage 5 chronic kidney disease or end stage renal disease; R18.8 Other ascites; E87.2 Acidosis; N18.6 End stage renal disease; N25.81 Secondary hyperparathyroidism of renal origin; Z20.822 Contact with and (suspected) exposure to COVID-19; E87.70 Fluid overload, unspecified; E87.5 Hyperkalemia; I25.10 Atherosclerotic heart disease of native coronary artery without angina pectoris; E78.5 Hyperlipidemia, unspecified; D63.1 Anemia in chronic kidney disease; E78.00 Pure hypercholesterolemia, unspecified; I08.3 Combined rheumatic disorders of mitral, aortic and tricuspid valves; D75.82 Heparin induced thrombocytopenia (HIT); E83.51 Hypocalcemia; R33.9 Retention of urine, unspecified; R11.0 Nausea; K59.00 Constipation, unspecified; Z88.8 Allergy status to other drugs, medicaments and biological substances; Z99.2 Dependence on renal dialysis; Z79.899 Other long term (current) drug therapy; Z79.02 Long term (current) use of antithrombotics/antiplatelets; I25.2 Old myocardial infarction; Z95.1 Presence of aortocoronary bypass graft; Z79.52 Long term (current) use of systemic steroids; Z79.4 Long term (current) use of insulin; Z98.49 Cataract extraction status, unspecified eye; Z98.890 Other specified postprocedural states; Z87.891 Personal history of nicotine dependence
CPT/HCPCS: 36415; 36416; 36430; 36620; 71045; 76770; 80048; 80053; 80061; 81003; 81015; 82607; 82728; 82746; 83036; 83540; 83550; 83880; 83970; 84100; 84443; 84484; 85025; 85520; 85610; 85730; 86580; 86704; 86706; 86803; 86850; 86900; 86901; 87340; 90935; 93005; 93306; 93798; 93970; 94760; 97139; C1713; C1752; C1776; G0257; J0360; J0690; J0883; J1100; J1200; J1642; J1644; J1815; J2370; J2405; J2704; J3010; J3490; J7050; P9016; P9035; Q5105; S0020; U0002; U0003; U0005

== ENCOUNTER 2021-10-17 15:03 | Emergency (ER) | payer OTHER, MEDICAID ==
[2021-10-17 17:49] LABS: #Basophils 0.1 thou/uL (0.0-0.2); #Eosinphils 0.8 thou/uL (0.0-0.7); #Lymphocytes 1.2 thou/uL (1.20-3.40); #Monocytes 0.6 thou/uL (0.11-0.59); #Neutrophils 4.9 thou/uL (1.40-6.50); %Basophils 0.8 % (0.0-1.0); %Eosinophils 10.7 % (0.0-10.0); %Monocytes 7.6 % (0.0-10.0); %Neutrophils 64.9 % (42.0-75.0); Hemoglobin 10.4 g/dL (14.0-18.0); Mean Corpuscular HGB CONC 32.3 g/dL (32.0-36.0); Mean Corpuscular Hemoglobin 32.4 pg (27.0-31.0); Mean Platelet Volume 8.7 fL (7.4-10.4); Platelet Count 123 thou/uL (130-400); RBC Distribution Width 13.7 % (11.5-14.5); White Blood Cell (WBC) Count 7.6 thou/uL (4.8-10.8)
[2021-10-17 19:06] LABS: ALT (SGPT) 13 U/L (8-55); AST (SGOT) 26 U/L (5-34); Albumin 3.3 g/dL (3.4-4.8); Alkaline Phosphatase 149 U/L (40-110); Anion Gap 13 mmol/L (10-20); BUN (Urea Nitrogen) 43 mg/dL (8.4-25.7); Bilirubin, Total 0.5 mg/dL (0.2-1.2); Calc. Creatinine Clearance 0 mL/min (70-130); Calcium 8.3 mg/dL (7.8-10.44); Carbon Dioxide 26 mmol/L (23-31); Chloride 101 mmol/L (98-107); Globulin 3.7 g/dL (2.4-3.5); Glucose 123 mg/dL (80-115); Potassium 4.8 mmol/L (3.5-5.1); Sodium 135 mmol/L (136-145)
== END 2021-10-17 19:16 | disposition home or self-care (01) ==
LOC: ERS 15:03
DX: K40.90 Unilateral inguinal hernia, without obstruction or gangrene, not specified as recurrent (principal); I12.0 Hypertensive chronic kidney disease with stage 5 chronic kidney disease or end stage renal disease; E11.22 Type 2 diabetes mellitus with diabetic chronic kidney disease; N18.6 End stage renal disease; H26.9 Unspecified cataract; Z79.4 Long term (current) use of insulin; Z87.19 Personal history of other diseases of the digestive system
CPT/HCPCS: 74177; 80053; 83605; 85025; 93005; 99283